=== PATIENT | male | born 1940 | race Caucasian/White ===

== ENCOUNTER 2017-06-15 07:23 | Emergency (ER) | payer MEDICARE ==
[2017-06-15] MEDS ORDERED: ONDANSETRON HCL INJ/PF 4 MG/2 ML SDV IV ONE ×2 (07:50→09:27)
[2017-06-15] MEDS ORDERED: DIPHENHYDRAMINE HCL 50 MG/ML VIAL IV ONE (07:50)
--- NOTE | 2017-06-15 07:54 | ER Document Report ---
ED General - General Mode of Arrival: Medic Information source: Patient TRAVEL OUTSIDE OF THE [place] IN LAST 30 DAYS: No - HPI Onset: This morning Associated symptoms: Other - see above <RAYA TOLLIVER - Last Filed: 06/15/17 08:08> <HARPAL LIRIANO - Last Filed: 06/15/17 13:05> - General Chief Complaint: Vertigo Stated Complaint: VERTIGO Time Seen by Provider: 06/15/17 07:37 Notes: Patient is a 77 year old male who presents to the ED with sudden onset dizziness just [employer] this morning. Patient states he woke up and got ready for work and then became dizzy. Patient states this is similar to in the past when he was admitted for Vertigo but states this time it is worse. Patients dizziness is exacerbated by movement, opening his eye and moving his head. Patient denies any weakness. Patient is also nauseated and has vomiting. Patient states today he cannot ambulate at all due to the dizziness. Patient states minor improvement from medication given by EMS. January 04, 2015 was admitted with similar symptoms patient did improve on Antivert. Patient became assymptomatic after about 3 days. He had a negative MRI and MRA. (RAYA TOLLIVER) - Related Data Allergies/Adverse Reactions: No Known Allergies Allergy (Verified 01/04/15 12:09) Past Medical History - General Information source: Patient - Social History Smoking Status: Never Smoker Chew tobacco use (# tins/day): No Frequency of alcohol use: None Drug Abuse: None Family History: Reviewed & Not Pertinent, CVA - Past Medical History Cardiac Medical History: Pulmonary Medical History: GI Medical History: Musculoskeltal Medical History: Surgical Hx: Negative Past Surgical History: - Immunizations Hx Pneumococcal Vaccination: 10/26/13 <RAYA TOLLIVER - Last Filed: 06/15/17 08:08> Review of Systems - Review of Systems Constitutional: See HPI. denies: Weakness EENT: See HPI, Vertigo Cardiovascular: See HPI, Dizziness Respiratory: No symptoms reported Gastrointestinal: See HPI, Nausea, Vomiting Genitourinary: No symptoms reported Male Genitourinary: No symptoms reported Musculoskeletal: No symptoms reported Skin: No symptoms reported Hematologic/Lymphatic: No symptoms reported Neurological/Psychological: See HPI. denies: Weakness <RAYA TOLLIVER - Last Filed: 06/15/17 08:08> Physical Exam - General General appearance: Appears well, Alert In distress: None - HEENT Head: Normocephalic, Atraumatic Eyes: Normal, Other - no nystagmus but states very dizzy when opening eyes and moving eyes side to side Extraocular movements intact: Yes Pupils: PERRL Neck: Normal. No: Carotid bruit - Respiratory Respiratory status: No respiratory distress Breath sounds: Normal - Cardiovascular Rhythm: Regular Heart sounds: Normal auscultation Murmur: No - Abdominal Inspection: Other - very nauseous Distension: No distension - Back Back: Normal - Extremities General upper extremity: Normal inspection, Normal ROM General lower extremity: Normal inspection, Normal ROM. No: Edema - Neurological Neuro grossly intact: Yes - Psychological Associated symptoms: Normal affect, Normal mood - Skin Skin Temperature: Warm Skin Moisture: Dry Skin Color: Normal <RAYA TOLLIVER - Last Filed: 06/15/17 08:08> - Vital signs Vitals: Temp Pulse Resp BP Pulse Ox 97.4 F 64 17 169/93 H 96 06/15/17 07:40 06/15/17 07:40 06/15/17 07:40 06/15/17 07:40 06/15/17 07:40 Course - Laboratory Result Diagrams: 06/15/17 07:36 06/15/17 07:36 <RAYA TOLLIVER - Last Filed: 06/15/17 08:08> - Laboratory Result Diagrams: 06/15/17 07:36 06/15/17 07:36 - EKG Interpretation by Me EKG shows normal: Sinus rhythm, [place], Intervals, QRS Complexes, ST-T Waves Rate: Normal - 61 Rhythm: NSR <HARPAL LIRIANO - Last Filed: 06/15/17 13:05> - Re-evaluation Re-evalutation: 06/15/17 09:27 Patient reports his dizziness is much better at this time, the nauseousness is much better but there is still some there. 06/15/17 10:37 The patient has been sleeping. He is awakened for reexam. He states the nauseousness is gone now and he feels much better. I had him sit up on his own and he did not feel dizzy. I had him look to the right and left rapidly turning his head and it did not make him dizzy. He feels as though he may be able to get up and walk at this point. We will attempt ambulation in about another 20 minutes. 06/15/17 12:51 The patient was able to walk to the restroom and urinate without difficulty. He states he did feel little drowsy but that is understandable given all the medications. He also mentions that it feels like there is water in his right ear. He removed his hearing aids for an exam and found the left TM is normal-appearing, the right TM is a little full, there are small blood vessels visible in the membrane, but there is no erythema to the tympanic membrane. (HARPAL LIRIANO) - Vital Signs Vital signs: Temp Pulse Resp BP Pulse Ox 97.7 F 66 17 132/82 H 93 06/15/17 12:59 06/15/17 12:59 06/15/17 12:59 06/15/17 12:59 06/15/17 12:59 - Laboratory Laboratory results interpreted by me: 06/15/17 06/15/17 07:36 07:36 Hgb 17.1 H MCV 99 H MCH 34.9 H RDW 14.3 H Glucose 199 H Discharge <RAYA TOLLIVER - Last Filed: 06/15/17 08:08> <HARPAL LIRIANO - Last Filed: 06/15/17 13:05> - Discharge Clinical Impression: Vertigo Condition: Stable Disposition: HOME, SELF-CARE Additional Instructions: Vertigo: You have experienced an episode of vertigo -- a whirling dizziness which may be accompanied by nausea and vomiting or staggering. Vertigo is often caused by an irritation of the inner ear, in which case it is called labyrinthitis. It can also be a symptom of a degenerating inner ear, nerve damage, or brain injury. Your physician has evaluated you to determine whether any further testing is necessary. Vertigo is often treated with dramamine or meclizine. These medications are helpful, but stronger medication may be needed if you are vomiting. Rest in bed. You should not drive or operate machinery until completely better. It may take one to three weeks for recovery. If there are new symptoms, such as decreased hearing or vision, severe headache, weakness or faintness, or confusion, call the physician. TAKE THE MEDICATION PRESCRIBED. TAKE FALL PRECAUTIONS. FOLLOW UP WITH YOUR DOCTOR IF NOT IMPROVING. RETURN TO THE EMERGENCY ROOM IF ANY NEW OR WORSENING SYMPTOMS. Prescriptions: Meclizine HCl [Antivert 25 mg Tablet] 25 mg PO TID PRN #30 tablet PRN Reason: Fredrickibe Attestation: 06/15/17 10:38 I personally performed the services described in the documentation, reviewed and edited the documentation which was dictated to the scribe in my presence, and it accurately records my words and actions. (HARPAL LIRIANO) Scribe Documentation - Scribe Written by Adam:: adam Tracey, 06/15/2017, [id number] acting as scribe for :: Ramón <RAYA TOLLIVER - Last Filed: 06/15/17 08:08>
[2017-06-15 07:59] LABS: ABSOLUTE BASOPHILS # (AUTO) 0.1 10^3/uL (0.0-0.2); ABSOLUTE EOSINOPHILS # (AUTO) 0.2 10^3/uL (0.0-0.6); ABSOLUTE LYMPHOCYTES (AUTO) 3.9 10^3/uL (0.5-4.7); BASOPHILS % (AUTO) 0.7 % (0-2); EOSINOPHILS % (AUTO) 1.5 % (0-6); HEMATOCRIT 48.3 % (37.9-51.0); HEMOGLOBIN 17.1 g/dL (13.5-17.0); MEAN CORPUSCULAR HEMOGLOBIN 34.9 pg (27.0-33.4); MEAN CORPUSCULAR HGB CONC 35.4 g/dL (32.0-36.0); MEAN CORPUSCULAR VOLUME 99 fl (80-97); MONOCYTES % (AUTO) 9.5 % (3-13); RED CELL DISTRIBUTION WIDTH 14.3 % (11.5-14.0); SEGMENTED NEUTROPHILS % (AUTO) 49.3 % (42-78); WHITE BLOOD COUNT 10.1 10^3/uL (4.0-10.5)
[2017-06-15 08:04] LABS: ALANINE AMINOTRANSFERASE 41 U/L (21-72); ALBUMIN 3.9 g/dL (3.5-5.0); ALKALINE PHOSPHATASE 78 U/L (38-126); ANION GAP 10 (5-19); ASPARTATE AMINO TRANSFERASE 25 U/L (17-59); BILIRUBIN,DIRECT 0.4 mg/dL (0.0-0.4); BLOOD UREA NITROGEN 17 mg/dL (7-20); CALCIUM 9.3 mg/dL (8.4-10.2); CARBON DIOXIDE 23 mmol/L (22-30); CHLORIDE 105 mmol/L (98-107); CREATINE KINASE 75 U/L (55-170); CREATININE RESULT 0.96 mg/dL (0.52-1.25); GLUCOSE 199 mg/dL (75-110); POTASSIUM 4.4 mmol/L (3.6-5.0); SODIUM 137.7 mmol/L (137-145); TOTAL PROTEIN 6.4 g/dL (6.3-8.2)
--- NOTE | 2017-06-15 08:38 | EKG REPORT ---
SEVERITY:- NORMAL ECG - SINUS RHYTHM : Confirmed by: Cindy Acuña 15-Jun-2017 08:38:16
[2017-06-15] MEDS ORDERED: MECLIZINE HCL 25 MG TABLET PO ONE (09:27)
[2017-06-15 13:03] VITALS: BP 132/82
== END 2017-06-15 13:11 | disposition home or self-care (01) ==
LOC: ER 07:23
DX: R42 Dizziness and giddiness (principal); R11.2 Nausea with vomiting, unspecified
CPT/HCPCS: 93005; 96376; 99284; 96374; 96375; 36415; 82550; 85025; 80053; 84484; 93010; J1200; A9270; J2405

== ENCOUNTER 2017-07-27 13:51 | Emergency (ER) | payer MEDICARE ==
[2017-07-27 14:54] LABS: ABSOLUTE BASOPHILS # (AUTO) 0.1 10^3/uL (0.0-0.2); ABSOLUTE EOSINOPHILS # (AUTO) 0.1 10^3/uL (0.0-0.6); ABSOLUTE LYMPHOCYTES (AUTO) 1.6 10^3/uL (0.5-4.7); ABSOLUTE MONOCYTES (AUTO) 0.7 10^3/uL (0.1-1.4); ABSOLUTE NEUT (AUTO) 10.7 10^3/uL (1.7-8.2); BASOPHILS % (AUTO) 0.5 % (0-2); EOSINOPHILS % (AUTO) 0.8 % (0-6); HEMATOCRIT 49.6 % (37.9-51.0); HEMOGLOBIN 17.7 g/dL (13.5-17.0); HGB HCT DIFFERENCE 3.5; LYMPHOCYTES % (AUTO) 12.2 % (13-45); MEAN CORPUSCULAR HEMOGLOBIN 35.3 pg (27.0-33.4); MEAN CORPUSCULAR HGB CONC 35.6 g/dL (32.0-36.0); MEAN CORPUSCULAR VOLUME 99 fl (80-97); RED BLOOD COUNT 5.01 10^6/uL (4.35-5.55); RED CELL DISTRIBUTION WIDTH 14.4 % (11.5-14.0); SEGMENTED NEUTROPHILS % (AUTO) 81.5 % (42-78); WHITE BLOOD COUNT 13.1 10^3/uL (4.0-10.5)
[2017-07-27 15:08] LABS: ALANINE AMINOTRANSFERASE 49 U/L (21-72); ALBUMIN 4.1 g/dL (3.5-5.0); ALKALINE PHOSPHATASE 84 U/L (38-126); ANION GAP 11 (5-19); ASPARTATE AMINO TRANSFERASE 25 U/L (17-59); BILIRUBIN,DIRECT 0.4 mg/dL (0.0-0.4); BILIRUBIN,TOTAL 0.7 mg/dL (0.2-1.3); BLOOD UREA NITROGEN 17 mg/dL (7-20); CALCIUM 9.7 mg/dL (8.4-10.2); CARBON DIOXIDE 25 mmol/L (22-30); CHLORIDE 103 mmol/L (98-107); CREATINE KINASE 77 U/L (55-170); CREATININE RESULT 0.91 mg/dL (0.52-1.25); GLUCOSE 171 mg/dL (75-110); POTASSIUM 4.9 mmol/L (3.6-5.0); SODIUM 138.5 mmol/L (137-145); TOTAL PROTEIN 6.7 g/dL (6.3-8.2)
--- NOTE | 2017-07-27 15:14 | ER Document Report ---
ED Dizziness/Weakness - General Chief Complaint: Vertigo Stated Complaint: DIZZINESS,VOMITING Time Seen by Provider: 07/27/17 15:13 Mode of Arrival: Medic Information source: Patient, Emergency Med Personnel TRAVEL OUTSIDE OF THE [place] IN LAST 30 DAYS: No - HPI Patient complains to provider of: Vertigo Onset: This morning Onset/Duration: Gradual Quality of pain: No pain Severity: Moderate Context: Vertigo - OCCASIONAL, RECURRENT, Other - HAS HAD RECENT URI SYMPTOMS. Associated symptoms: Nausea, Vertigo. denies: Chest pain, Fainted, Headache, Short of breath, Vomiting Exacerbated by: Movement of head Baseline gait: Walks w/o assistance - Related Data Allergies/Adverse Reactions: No Known Allergies Allergy (Verified 01/04/15 12:09) Past Medical History - General Information source: Patient, Relative - Social History Smoking Status: Unknown if Ever Smoked Cigarette use (# per day): No Chew tobacco use (# tins/day): No Frequency of alcohol use: None Drug Abuse: None Lives with: Spouse/Significant other Family History: Reviewed & Not Pertinent, CVA Patient has suicidal ideation: No Patient has homicidal ideation: No - Past Medical History Cardiac Medical History: Denies: Hx Hypertension Pulmonary Medical History: Reports: None Neurological Medical History: Reports: Other - VERTIGO Endocrine Medical History: Reports: None. Denies: Hx Diabetes Mellitus Type 1, Hx Diabetes Mellitus Type 2 Renal/ Medical History: Reports: None GI Medical History: Reports: None Musculoskeltal Medical History: Reports None Psychiatric Medical History: Reports: None Surgical Hx: Negative Past Surgical History: - Immunizations Hx Pneumococcal Vaccination: 10/26/13 Review of Systems - Review of Systems Constitutional: No symptoms reported EENT: Nose congestion Cardiovascular: No symptoms reported. denies: Syncope, Lightheaded Respiratory: No symptoms reported Gastrointestinal: See HPI Genitourinary: No symptoms reported Musculoskeletal: No symptoms reported Skin: No symptoms reported Neurological/Psychological: See HPI Physical Exam - Vital signs Vitals: Temp Pulse Resp BP Pulse Ox 97.4 F 77 18 165/92 H 94 07/27/17 14:14 07/27/17 14:14 07/27/17 14:14 07/27/17 14:14 07/27/17 14:14 Interpretation: Hypertensive. No: Tachycardic, Tachypneic, Febrile - General General appearance: Appears well, Alert In distress: None - HEENT Head: Normocephalic Eyes: Normal Conjunctiva: Normal Ears: Normal External canal: Normal Tympanic membrane: Retracted - RIGHT. 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 - Psychological Associated symptoms: Normal affect, Normal mood - Skin Skin Temperature: Warm Skin Moisture: Dry Skin Color: Normal Skin Turgor: Elastic Course - Vital Signs Vital signs: Temp Pulse Resp BP Pulse Ox 97.4 F 77 21 H 143/96 H 95 07/27/17 14:14 07/27/17 14:14 07/27/17 18:00 07/27/17 18:00 07/27/17 18:00 - Laboratory Result Diagrams: 07/27/17 14:40 07/27/17 14:40 Laboratory results interpreted by me: 07/27/17 07/27/17 07/27/17 14:40 14:40 17:44 WBC 13.1 H Hgb 17.7 H MCV 99 H MCH 35.3 H RDW 14.4 H Seg Neutrophils % 81.5 H Lymphocytes % 12.2 L Absolute Neutrophils 10.7 H Glucose 171 H Urine Protein 30 H Urine Ketones 20 H Discharge - Discharge Clinical Impression: Vertigo Condition: Stable Disposition: HOME, SELF-CARE Instructions: Meclizine ([facility]), Vertigo ([facility]) Additional Instructions: REST, DRINK PLENTY OF FLUIDS. TAKE MECLIZINE DIRECTED, IF NEEDED FOR CONTROL OF SYMPTOMS. FOLLOW UP WITH YOUR PRIMARY CARE PROVIDER IN 3-7 DAYS. RETURN TO E.R. IF PROBLEMS ANY TIME. Prescriptions: Meclizine HCl [Antivert 25 mg Tablet] 25 mg PO ASDIR PRN #20 tablet PRN Reason: For Dizziness Referrals: ANIKET GIL MD [Primary Care Provider] - Follow up in 3-5 days
[2017-07-27 15:17] LABS: CREATINE KINASE MB 1.38 ng/mL (<4.55)
[2017-07-27 15:21] LABS: TROPONIN I < 0.012 ng/mL
[2017-07-27 18:07] VITALS: BP 143/96
[2017-07-27 19:09] LABS: APPEARANCE,URINE CLEAR; BILIRUBIN,URINE NEGATIVE (NEGATIVE); GLUCOSE, URINE NEGATIVE (NEGATIVE); KETONES,URINE 20 mg/dL (NEGATIVE); LEUKOCYTE ESTERASE,URINE NEGATIVE (NEGATIVE); NITRITE,URINE NEGATIVE (NEGATIVE); PROTEIN,URINE 30 mg/dL (NEGATIVE); UROBILINOGEN,URINE NEGATIVE mg/dL (<2.0)
--- NOTE | 2017-07-28 04:46 | EKG REPORT ---
SEVERITY:- ABNORMAL ECG - SINUS RHYTHM LEFT ATRIAL ABNORMALITY : Confirmed by: Angelia Mendez MD 28-Jul-2017 04:28:37
== END 2017-07-27 18:00 | disposition home or self-care (01) ==
LOC: ER 13:51
DX: R42 Dizziness and giddiness (principal); R11.10 Vomiting, unspecified; R09.81 Nasal congestion
CPT/HCPCS: 36415; 80053; 81001; 82550; 82553; 83036; 84484; 85025; 93005; 93010; 99284